=== PATIENT | female | born 1965 | race Caucasian/White ===

== ENCOUNTER 2025-02-18 15:46 | Emergency (ER) | payer MEDICAID, SELFPAY ==
--- NOTE | 2025-02-18 16:05 | ED.GENADULT ---
HPI - General Adult General Chief complaint: Nausea/Vomiting/Diarrhea Stated complaint: vomiting Related Data Previous Rx's ?Medication ?Instructions ?Recorded diphenhydramine HCl 25 mg tablet 25 mg PO Q6-8H PRN Nausea or 02/19/25 (Benadryl Allergy) vomiting #14 tabs metoclopramide HCl 10 mg tablet 10 mg PO Q6H PRN nausea and 02/19/25 (Reglan) vomiting #14 tabs Allergies Allergy/AdvReac Type Severity Reaction Status Date / Time No Known Allergies Allergy Verified 02/18/25 20:37 [facility] Social History Social History Smoked in Last 30 Days: No Use of substances other than those prescribed or required for medical reasons: No Advance Directives: No Advance Directives Information Provided: No Do you have a plan to hurt others: No Plan Physical Exam ED Vital Signs: BMI result Body Mass Index 20.0 Course Course Course Narrative: This is a rapid medical exam performed by Hardy Rosenbaum NP: Additional HPI, ROS, PE not included below will be deferred to primary provider. Patient is a 59-year-old female presenting to the ED with complaint of nausea, vomiting since 3am, states she has been vomiting every 10 minutes. Had a similar episode one week ago which lasted 12 hours. Denies diarrhea. States she also hit her head against the wall while leaning over the toilet. Denies any pain. Denies any pmhx, BP 190/75. Had hormone pallet injection through a company called [employer] in [place] one week ago. A+Ox3, lungs clear throughout, no abdominal tenderness, ambulating with steady gait. Plan: labs, viral swabs, medicated with zofran in triage Medications Administered Discontinued Medications Generic Name Dose Route Start Last Admin Trade Name Freq PRN Reason Stop Dose Admin Ondansetron HCl 4 mg 02/18/25 16:08 02/18/25 16:10 Ondansetron Odt 4 Mg Tab.Paweldis TRANSLINGU 02/18/25 16:09 4 mg ONCE ONE Administration Medical Decision Making Lab Data 02/18/25 16:24 02/18/25 16:24 Labs: Lab Results 02/18/25 Range/Units 16:24 WBC 8.8 (4.8-10.8) X10*3/uL RBC 4.47 (4.20-5.50) X10*6/uL Hgb 13.9 (12.0-16.0) g/dl Hct 39.7 (37.0-47.0) % MCV 88.8 (80.0-98.0) fL MCH 31.1 (27.0-33.0) pg MCHC 35.0 (31.0-35.0) g/dl RDW 13.2 (11.0-16.0) % Plt Count 356 (160-400) X10*3/uL MPV 9.6 (9.4-12.3) fL Immature Gran % (Auto) 0.7 H (0.0-0.4) % Neut % (Auto) 89.7 H (45-73) % Lymph % (Auto) 7.3 L (20-40) % [place] % (Auto) 2.3 (2-11) % Eos % (Auto) 0.0 (0-4) % Baso % (Auto) 0.0 (0-2) % Lymph # (Auto) 0.6 L (1.2-4.9) X10*3/uL [place] # (Auto) 0.2 (0.1-1.2) X10*3/uL Eos # (Auto) 0.0 (0.0-0.4) X10*3/uL Baso # (Auto) 0.0 (0.0-0.2) X10*3/uL Abs Immat Gran (auto) 0.06 H (0.00-0.03) X10*3/uL Absolute Neuts (auto) 7.9 (2.0-8.3) x10*3/uL Absolute Nucleated RBC 0.000 (0.0-0.012) X10*3/uL Nucleated RBC % (auto) 0.0 (0.0-0.2) /100WBC Sodium 138 (135-145) mmol/L Potassium 3.7 (3.3-5.1) mmol/L Chloride 100 (96-108) mmol/L Carbon Dioxide 23 (22-29) mmol/L Anion Gap 19 (12-20) BUN 11 (9-16) mg/dL Creatinine 0.73 (0.5-1.4) mg/dL Estim Creat Clear Calc 73.4 Estimated GFR > 60 Random Glucose 123 H (60-115) mg/dL Calcium 9.5 (8.4-10.2) mg/dL Magnesium 1.8 (1.6-2.6) mg/dL Total Bilirubin 0.4 (0.0-1.0) mg/dL AST 33 H (5-31) U/L ALT 38 H (0-31) U/L Alkaline Phosphatase 87 (39-117) U/L Total Protein 7.3 (6.5-8.0) g/dL Albumin 4.9 (3.5-5.0) g/dL Lipase 50 (8-78) U/L Influenza Type A (PCR) NEGATIVE (Negative) Influenza Type B (PCR) NEGATIVE (Negative) RSV RNA Qual (PCR) NEGATIVE (Negative) SARS-CoV-2 RNA (RT-PCR) NEGATIVE (Negative) Discharge Plan Discharge Clinical Impression: Nausea & vomiting Patient Disposition: Left W/O Completing Treatment Prescriptions: No Action diphenhydramine HCl [Benadryl Allergy] 25 mg tablet 25 mg PO Q6-8H PRN (Reason: Nausea or vomiting) Qty: 14 0RF metoclopramide HCl [Reglan] 10 mg tablet 10 mg PO Q6H PRN (Reason: nausea and vomiting) Qty: 14 0RF Discharge Date/Time: 02/18/25 18:00
[2025-02-18 16:06] VITALS: BP 190/75; PULSE 58; RESP 18; TEMP 36.6; O2SAT 100
[2025-02-18 16:38] LABS: MANUAL DIFF FLAG NO
[2025-02-18 16:42] LABS: Hematocrit 39.7 % (37.0-47.0); Hemoglobin 13.9 g/dl (12.0-16.0); Imm Gran Abs Auto 0.06 X10*3/uL (0.00-0.03); Imm Gran Pct Auto 0.7 % (0.0-0.4); Lymphocytes Absolute Auto 0.6 X10*3/uL (1.2-4.9); Mean Corpuscular HGB Conc 35.0 g/dl (31.0-35.0); Mean Corpuscular Hemoglobin 31.1 pg (27.0-33.0); Mean Corpuscular Volume 88.8 fL (80.0-98.0); NRBC Abs Auto 0.000 X10*3/uL (0.0-0.012); NRBC Pct Auto 0.0 /100WBC (0.0-0.2); Platelet Count 356 X10*3/uL (160-400); Red Blood Count 4.47 X10*6/uL (4.20-5.50); White Blood Count 8.8 X10*3/uL (4.8-10.8)
[2025-02-18 16:55] LABS: Alanine Aminotransferase 38 U/L (0-31); Albumin Level 4.9 g/dL (3.5-5.0); Alkaline Phosphatase 87 U/L (39-117); Anion Gap 19 (12-20); Aspartate Amino Transferase 33 U/L (5-31); Blood Urea Nitrogen 11 mg/dL (9-16); Calcium 9.5 mg/dL (8.4-10.2); Carbon Dioxide 23 mmol/L (22-29); Chloride 100 mmol/L (96-108); Creatinine Clr Calc Pharmacy 73.4; Estimated Glomerular Filt Rate > 60; Lipase 50 U/L (8-78); Magnesium 1.8 mg/dL (1.6-2.6); Potassium 3.7 mmol/L (3.3-5.1); Sodium 138 mmol/L (135-145); Total Protein 7.3 g/dL (6.5-8.0)
[2025-02-18 17:17] LABS: Resp Syncy Virus RNA Qual PCR NEGATIVE (Negative); SARS COV2 PCR INHOUSE NEGATIVE (Negative)
== END 2025-02-18 18:00 | disposition left against medical advice (07) ==
PROVIDERS: Registered Nurse Emergency; Emergency Provider Emergency Medicine
DX: R11.2 Nausea with vomiting, unspecified (principal); R19.7 Diarrhea, unspecified; Z03.818 Encounter for observation for suspected exposure to other biological agents ruled out
CPT/HCPCS: 36415; 80053; 83690; 83735; 85025; 87637; 99281; 99283

== ENCOUNTER 2025-02-18 20:27 | Emergency (ER) | payer MEDICAID, SELFPAY ==
--- NOTE | 2025-02-18 | ECG_ITS ---
Test Reason : NAUSEA/VOMITING Blood Pressure : */* mmHG Vent. Rate : 63 BPM Atrial Rate : 63 BPM P-R Int : 158 ms QRS Dur : 78 ms QT Int : 512 ms P-R-T Axes : 76 66 74 degrees QTcB Int : 523 ms Normal sinus rhythm with sinus arrhythmia Possible Left atrial enlargement Prolonged QT Abnormal ECG No previous ECGs available Referred By: Generic ED Physician Electronically Signed By: LEONEL MARTINI MD
[2025-02-18 20:32] VITALS: BP 123/84; PULSE 78; O2SAT 100
[2025-02-18 20:35] VITALS: BP 156/83; PULSE 59; RESP 15; TEMP 36.6; O2SAT 99; BMI 15.7
[2025-02-18 22:00] VITALS: BP 146/77; PULSE 60; RESP 16; TEMP 36.9; O2SAT 99
--- NOTE | 2025-02-18 23:17 | ED.NAVMDI ---
HPI - Nausea/Vomiting/Diarrhea General Chief complaint: Nausea/Vomiting/Diarrhea Stated complaint: n/v syncope episode Time Seen by Provider: 02/18/25 23:04 Source: patient Mode of arrival: EMS Limitations: no limitations History of Present Illness ED Provider: Dr. Tate Peguero HPI Narrative: 59-year-old female who presents emergency department for evaluation of nausea, vomiting, weakness and syncopal episode. The patient states that she has had nausea and vomiting since 03:00 yesterday. She states that she has not been able to eat or drink. She states that she was in the bathroom, vomited, stood up too quickly, became lightheaded dizzy and then fainted. She states she fell backwards and struck her head. She states that this occurred around 19:30 hours. Since the fall and head injury she denies headache, nausea or vomiting. The patient came to the emergency department earlier but left prior to being seen. At that time she had blood work which was unremarkable. Patient states that 1 week prior she also had intractable nausea and vomiting for 24 hours. Patient states she has a hormone replacement therapy palate that was placed in her gluteus muscle 02/06/2025. She states that this has at least her 3rd round of pellet therapy. She denied fever, chills, chest pain, shortness of breath, dyspnea on exertion, cough, abdominal pain, frequency, urgency, dysuria Related Data Previous Rx's ?Medication ?Instructions ?Recorded diphenhydramine HCl 25 mg tablet 25 mg PO Q6-8H PRN Nausea or 02/19/25 (Benadryl Allergy) vomiting #14 tabs metoclopramide HCl 10 mg tablet 10 mg PO Q6H PRN nausea and 02/19/25 (Reglan) vomiting #14 tabs Allergies Allergy/AdvReac Type Severity Reaction Status Date / Time No Known Allergies Allergy Verified 02/18/25 20:37 Physical Exam Vital Signs: Vital Signs: Last Vital Signs Temp 98.5 F 02/18/25 22:00 Pulse 60 02/18/25 22:00 Resp 16 02/18/25 22:00 BP 146/77 H 02/18/25 22:00 Pulse Ox 99 02/18/25 22:00 O2 Del Method Room Air 02/18/25 22:00 BMI result Body Mass Index 15.7 Medical Decision Making Medical Decision Making [facility] Narrative: 59-year-old female who presents emergency department for evaluation of nausea, vomiting, weakness and syncopal episode. The patient states that she has had nausea and vomiting since 03:00 yesterday. She states that she has not been able to eat or drink. She states that she was in the bathroom, vomited, stood up too quickly, became lightheaded dizzy and then fainted. She states she fell backwards and struck her head. She states that this occurred around 19:30 hours. Since the fall and head injury she denies headache, nausea or vomiting. The patient came to the emergency department earlier but left prior to being seen. At that time she had blood work which was unremarkable.Patient states that 1 week prior she also had intractable nausea and vomiting for 24 hours. Patient states she has a hormone replacement therapy palate that was placed in her gluteus muscle 02/06/2025. She states that this has at least her 3rd round of pellet therapy.She denied fever, chills, chest pain, shortness of breath, dyspnea on exertion, cough, abdominal pain, frequency, urgency, dysuria. Vital signs revealed an elevated blood pressure of 156/83 otherwise unremarkable. Physical examination was unremarkable Differential diagnosis: ?Includes but is not limited to viral syndrome, dehydration, volume depletion, electrolyte abnormalities, anemia Course: 23:59 My independent interpretation patient's laboratory evaluation is as follows: CBC was normal. CMP was normal except for an elevated glucose of 123, elevated AST and ALT of 33 and 38. Lipase was normal. COVID-19, influenza and RSV tests were negative. At this time I do not have a clear etiology for the patient's recurrent nausea and vomiting. The patient's laboratory evaluation was unremarkable. EKG was unremarkable. Patient was treated with normal saline IV x1 L and Zofran 4 mg IV. Patient was discharged home with printed and verbal instructions. Admission/Observation Consideration of admission/observation: Escalation of care including admission/observation considered (Yes) Independent Interpretation I performed an independent interpretation of an: EKG Interpretation: My independent interpretation of the patient's 12 EKG done on 02/18/2025 at 20:40 hours is as follows: Normal sinus rhythm with a rate of 63, normal SC interval, QRS duration, prolonged QTC interval 523 milliseconds, no significant T-wave abnormalities, no PACs, no PVCs, no old EKG for comparison Prescription Management I considered prescription management with: Other (Antiemetic: Zofran ODT) Discharge Plan Discharge Clinical Impression: Nausea & vomiting, Acute dehydration Patient Disposition: Home, Self-Care Instructions: Acute Nausea and Vomiting (DC) Additional Instructions: Your blood work from earlier in the day was unremarkable. Your EKG did not reveal any significant abnormality to explain your nausea and vomiting. At this time, I do not have a clear cause for your nausea and vomiting. Take Reglan (metoclopramide) 10 mg pills and Benadryl (diphenhydramine) 25 mg pills, 1 pill every 6 hours as needed for nausea and vomiting. Follow-up with your doctor in 2 days. Please return to the emergency department if your symptoms get worse or if you develop any symptoms that are concerning to you. Prescriptions: New diphenhydramine HCl [Benadryl Allergy] 25 mg tablet 25 mg PO Q6-8H PRN (Reason: Nausea or vomiting) Qty: 14 0RF metoclopramide HCl [Reglan] 10 mg tablet 10 mg PO Q6H PRN (Reason: nausea and vomiting) Qty: 14 0RF Print Language: [place]
--- NOTE | 2025-02-18 23:43 | PC.NURSE ---
pt has patent iv via ems. ivf started and ivp zofran given for nausea. pt resting comfortably at this time, will trial po when sx resolve.
[2025-02-18 23:59] VITALS: BP 115/71; PULSE 82; RESP 16; TEMP 36.7; O2SAT 100
[2025-02-19 01:20] VITALS: BP 120/79; PULSE 92; RESP 14; TEMP 36.7; O2SAT 100
== END 2025-02-19 01:21 | disposition home or self-care (01) ==
PROVIDERS: Emergency Provider Emergency Medicine Emergency Medical Services
DX: R11.2 Nausea with vomiting, unspecified (principal); E86.0 Dehydration
CPT/HCPCS: 93005; 96361; 96374; 99284; 99285; J2405

== ENCOUNTER → 2025-02-18 20:40 | Outpatient (BNV) | payer MEDICAID, SELFPAY | PROVIDERS: Emergency Provider Emergency Medicine Emergency Medical Services; Visit Provider Internal Medicine Cardiovascular Disease | DX: R94.31 Abnormal electrocardiogram [ECG] [EKG] (principal); R11.2 Nausea with vomiting, unspecified | CPT/HCPCS: 93010 ==